=== PATIENT | female | born 1990 | race Caucasian/White ===

== ENCOUNTER 2017-10-11 19:39 | Emergency (ER) | payer BC, OTHER ==
[2017-10-11 19:57] VITALS: BMI 37.2
[2017-10-11 20:01] VITALS: BP 126/75; PULSE 89; RESP 16; TEMP 98.2; O2SAT 100
--- NOTE | 2017-10-11 20:14 | ED PDOC ---
Lower Extremity Pain/Injury Time Seen by Provider: 10/11/17 20:02 Chief Complaint (Nursing): Lower Extremity Problem/Injury Chief Complaint (Provider): right ankle pain History Per: Patient Additional Complaint(s): 27-year-old female presents with pain to right ankle status post trip and fall on Wednesday. Patient states she has been taking Tylenol and Advil which has helped the pain. Patient went back to work and noticed increasing swelling prompting ED visit. Patient able to fully weight-bear. PMD: Dr. Nguyen Past Medical History Reviewed: Historical Data, Nursing Documentation, Vital Signs Vital Signs: Last Vital Signs Temp 98.2 F 10/11/17 19:57 Pulse 89 10/11/17 19:57 Resp 16 10/11/17 19:57 BP 126/75 10/11/17 19:57 Pulse Ox 100 10/11/17 19:57 - Medical History PMH: Migraine - Surgical History Other surgeries: Laparoscopy to check for endmetriosis - Family History Family History: States: Diabetes, Hypertension - Living Arrangements Living Arrangements: With Family - Social History Current smoker - smoking cessation education provided: No Alcohol: Social Drugs: Denies - Home Medications Home Medications: Ambulatory Orders Medication Instructions Recorded oxyCODONE/Acetaminophen [Percocet 1 tab PO Q6H PRN #15 tab 03/11/15 5/325 mg Tab] - Allergies Allergies/Adverse Reactions: Allergies Allergy/AdvReac Type Severity Reaction Status Date / Time No Known Allergies Allergy Verified 10/11/17 19:57 Review of Systems ROS Statement: Except As Marked, All Systems Reviewed And Found Negative Musculoskeletal: Positive for: Other (right ankle injury) Physical Exam - Reviewed Nursing Documentation Reviewed: Yes Vital Signs Reviewed: Yes - Physical Exam Appears: Positive for: Well, Non-toxic, No Acute Distress Skin: Negative for: Rash Eye Exam: Positive for: Normal appearance Neck: Positive for: Normal Extremity: Positive for: Other (Tenderness to right lateral malleolus with full range of motion, mild tenderness to dorsal aspect of right foot, palpable DP pulse) Neurologic/Psych: Positive for: Alert, Oriented - Laboratory Results Urine POC: Negative - ECG O2 Sat by Pulse Oximetry: 100 Pulse Ox Interpretation: Normal - Other Rad right ankle x-ray X-Ray: Interpreted by Me, Viewed By Me X-Ray Interpretation: no fx, no dis Medical Decision Making Medical Decision Makin-year-old female with right ankle injury Plan: Pain meds declined X-ray right ankle Patient is aware of x-ray results, all questions answered. Patient declined Aircast. She was advised to ice and elevate affected area and continue with NSAIDs for pain. Patient was referred to podiatry clinic for follow up. Disposition - Clinical Impression Clinical Impression: Ankle sprain - Patient ED Disposition Is Patient to be Admitted: No Counseled Patient/Family Regarding: Studies Performed, Diagnosis, Need For Followup - Disposition Referrals: Podiatry Clinic [Outside] Disposition: Routine/Home Disposition Time: 21:29 Condition: STABLE Additional Instructions: Ice, rest and elevate affected area. Continue with Tylenol and Advil for pain as needed. Follow-up with podiatry clinic for any persistent symptoms. Instructions: Ankle Sprain (DC) Forms: [employer] (Yi)
--- NOTE | 2017-10-12 08:28 | RAD ---
PROCEDURE: Right Foot Radiographs. HISTORY: trauma COMPARISON: None. FINDINGS: BONES: No acute fracture or destructive bony lesion identified. JOINTS: A mild hallux valgus deformity is identified. SOFT TISSUES: Normal. OTHER FINDINGS: None. IMPRESSION: No acute fracture or dislocation. Mild hallux valgus deformity.
--- NOTE | 2017-10-12 08:28 | RAD ---
PROCEDURE: Right Ankle Radiographs. HISTORY: trauma COMPARISON: None FINDINGS: BONES: No acute fracture or destructive bony lesion identified. JOINTS: Normal. No osteoarthritis. Ankle mortise maintained. Talar dome intact SOFT TISSUES: Moderate lateral malleolar soft tissue edema is identified. OTHER FINDINGS: None. IMPRESSION: Moderate lateral malleolar soft edema is identified without underlying fracture subluxation or dislocation appreciable.
== END 2017-10-11 21:37 | disposition home or self-care (01) ==
LOC: H.ER 19:39
DX: S99.921A Unspecified injury of right foot, initial encounter (principal); W19.XXXA Unspecified fall, initial encounter; Y92.89 Other specified places as the place of occurrence of the external cause